=== PATIENT | female | born 1945 | race African-American/Black ===

== ENCOUNTER 2017-09-10 13:38 | Emergency (ER) | payer MEDICARE, BC ==
[~2017-09-10] VITALS: Ht 165.1 cm; Wt 84.0 kg
[~2017-09-10 13:38] MED LIST: AMLO10TA4 PO; BRIM5DRO RIGHTEYE; LEVO100T9 PO; LOSA1TAB37 PO; TIMO15DR12 RIGHTEYE
[2017-09-10 14:29] LABS: BASOPHILS % 0.8 % (0.0-2.0); EOSINOPHILS % 2.3 % (0.0-5.0); HEMATOCRIT. 38.6 % (36.0-48.0); HEMOGLOBIN. 12.9 g/dL (12.0-16.0); LYMPHOCYTES % 33.3 % (20.0-50.0); MEAN CORPUSCULAR HEMOGLOBIN 27.4 pg (28.0-32.0); MEAN CORPUSCULAR VOLUME 81.9 fL (81.0-99.0); MEAN PLATELET VOLUME 6.9 fl (7.4-10.4); MONOCYTES % 11.7 % (2.0-8.0); NEUTROPHILS % 51.9 % (40.0-76.0); PLATELET 278 x1000/uL (130-400); RED BLOOD CELL COUNT 4.72 mill/uL (4.2-5.4); RED CELL DISTRIBUTION WIDTH 14.4 % (11.6-14.6)
[2017-09-10 14:40] LABS: CHLORIDE 107 mEq/L (98-107)
[2017-09-10 14:44] LABS: INR 1.1; PARTIAL THROMBOPLASTIN TIME 27.2 sec (23.4-31.0); PROTHROMBIN TIME 10.9 sec (9.4-11.6)
[2017-09-10 18:20] LABS: CLARITY URINE TURBID (CLEAR); COLOR URINE YELLOW (YELLOW); KETONES URINE NEGATIVE (NEGATIVE); LEUKOCYTE ESTERASE URINE NEGATIVE (NEGATIVE); NITRITE URINE NEGATIVE (NEGATIVE); OCCULT BLOOD URINE NEGATIVE (NEGATIVE); PROTEIN URINE NEGATIVE (NEGATIVE); SPECIFIC GRAVITY URINE 1.014 (1.005-1.030); UROBILINOGEN URINE 0.2 E.U./dL (0.2-1.0)
[2017-09-10] MEDS ORDERED: IBUPROFEN 600MG TABLET PO ONE (19:45)
[2017-09-10 20:04] VITALS: BP 135/77
== END 2017-09-10 20:07 | disposition home or self-care (01) ==
LOC: ER 16:02
DX: S09.8XXA Other specified injuries of head, initial encounter (principal); M54.2 Cervicalgia; M79.1 Myalgia; M79.652 Pain in left thigh; I10 Essential (primary) hypertension; E78.00 Pure hypercholesterolemia, unspecified; E03.9 Hypothyroidism, unspecified; W01.0XXA Fall on same level from slipping, tripping and stumbling without subsequent striking against object, initial encounter; Y93.89 Activity, other specified; Y99.8 Other external cause status; Y92.89 Other specified places as the place of occurrence of the external cause; Z88.5 Allergy status to narcotic agent; Z88.8 Allergy status to other drugs, medicaments and biological substances
CPT/HCPCS: 36415; 70450; 72125; 73552; 80053; 81003; 83690; 85025; 85610; 85730; 99285

== ENCOUNTER 2018-04-01 17:32 | Inpatient (IN) | payer MEDICARE, BC ==
[~2018-04-01] VITALS: Ht 165.1 cm; Wt 83.9 kg
[~2018-04-01 17:32] MED LIST changes: +BRIM5DRO BOTHEYE; -BRIM5DRO RIGHTEYE; +TIMO15DR12 BOTHEYE; -TIMO15DR12 RIGHTEYE
[2018-04-01] MEDS ORDERED: SODIUM CHLORIDE 0.9% 1,000 ML IV ONE (17:46)
[2018-04-01] MEDS ORDERED: ASPIRIN 81MG TABLET PO ONE (18:00)
[2018-04-01 18:30] LABS: BASOPHILS % 0.5 % (0.0-2.0); EOSINOPHILS % 2.8 % (0.0-5.0); HEMATOCRIT. 36.4 % (36.0-48.0); LYMPHOCYTES % 31.5 % (20.0-50.0); MEAN CORPUSCULAR HEMOGLOBIN 26.8 pg (28.0-32.0); MEAN CORPUSCULAR VOLUME 81.7 fL (81.0-99.0); MEAN PLATELET VOLUME 7.1 fl (7.4-10.4); MONOCYTES % 11.5 % (2.0-8.0); NEUTROPHILS % 53.7 % (40.0-76.0); PLATELET 270 x1000/uL (130-400); RED BLOOD CELL COUNT 4.45 mill/uL (4.2-5.4); RED CELL DISTRIBUTION WIDTH 14.9 % (11.6-14.6)
[2018-04-01 18:33] LABS: CHLORIDE 102 mEq/L (98-107)
[2018-04-01 18:40] LABS: D-DIMER 0.4 mg/L FEU (<0.50); PARTIAL THROMBOPLASTIN TIME 26.8 sec (23.4-31.0)
[2018-04-01 22:12] VITALS: BP 134/95
[2018-04-01] MEDS ORDERED: IPRATROPIUM/ALBUTEROL 0.5-3(2.5)MG/3ML NEB HHN PRN (23:30)
[2018-04-01] MEDS ORDERED: HYDROCODONE/ACETAMINOPHEN 5/325MG TABLET PO PRN (23:30)
[2018-04-02 04:00] VITALS: BP 124/70
[2018-04-02 08:00] VITALS: BP 135/72
[2018-04-02] MEDS ORDERED: AMLODIPINE 10MG TABLET PO SCH (09:00)
[2018-04-02] MEDS: BRIMONIDINE 0.2% OPHTH DROPS 5ML BOTHEYE SCH ×2 (09:00→17:34)
[2018-04-02] MEDS ORDERED: ASPIRIN 81MG TABLET PO SCH (09:00)
[2018-04-02] MEDS ORDERED: POTASSIUM CHLORIDE 20MEQ TABLET SR PO SCH (09:00)
[2018-04-02] MEDS: TIMOLOL MALEATE 0.5% OPHTH DROPS 5ML EACHEYE SCH ×3 (09:00→17:34)
[2018-04-02] MEDS ORDERED: ENOXAPARIN 40MG/0.4ML SYR SUBCUT SCH (09:00)
[2018-04-02 09:53] LABS: CHLORIDE 107 mEq/L (98-107)
[2018-04-02 10:10] LABS: HDL CHOLESTEROL 72 mg/dL (40-59)
[2018-04-02 10:11] LABS: LDL CHOLESTEROL 156 mg/dL (5-100)
[2018-04-02 12:00] VITALS: BP 121/72
[2018-04-02] MEDS ORDERED: LEVOTHYROXINE SODIUM 100MCG TABLET PO SCH (12:20)
[2018-04-02] MEDS ORDERED: EZETIMIBE 10MG TABLET PO SCH (12:30)
[2018-04-02 16:00] VITALS: BP 128/71
[2018-04-02 17:01] LABS: BG BASE EXCESS -2.6 mmol/L (-2.0-2.0); BG CARBOXYHEMOGLOBIN 0.4 % (0.5-1.5); BG DEOXYHEMOGLOBIN 3.5 % (0.0-5.0); BG FRACTION INSPIRED OXYGEN 21; BG HCO3 ACT 20.7 mmol/L (22.0-26.0); BG METHEMOGLOBIN 0.3 % (0.0-1.5); BG OXYGEN SATURATION 96.5 % (92.0-98.5); BG OXYHEMOGLOBIN 95.8 % (94.0-97.0); BG PCO2 31.4 mmHg (35.0-45.0); BG PH 7.436 (7.350-7.450); BG PO2 85.4 mmHg (75.0-100.0); BG SAMPLE SITE RIGHT RADIAL; BG TOTAL HEMOGLOBIN 13.3 g/dL (12.0-18.0); BG VENT MODE ROOM AIR
[2018-04-02] MEDS ORDERED: LEVOTHYROXINE SODIUM 88MCG TABLET PO NR (17:30)
[2018-04-02 20:00] VITALS: BP_SYST 109; BP_SYST 139; BP_DIAS 62; BP_DIAS 72
[2018-04-02 20:51] VITALS: BP 109/62
[2018-04-03] MEDS ORDERED: LEVOTHYROXINE SODIUM 88MCG TABLET PO SCH (07:40)
== END 2018-04-02 21:50 | disposition short-term general hospital (02) | DRG 194 ==
LOC: ER 17:32 → 7WST 19:53 → ENRESERV 20:58
PROVIDERS: ADMIT Internal Medicine; ATTEND Internal Medicine
DX: I11.0 Hypertensive heart disease with heart failure (principal); G90.8 Other disorders of autonomic nervous system; R00.1 Bradycardia, unspecified; J44.9 Chronic obstructive pulmonary disease, unspecified; I50.33 Acute on chronic diastolic (congestive) heart failure; E78.5 Hyperlipidemia, unspecified; Z86.73 Personal history of transient ischemic attack (TIA), and cerebral infarction without residual deficits; M19.90 Unspecified osteoarthritis, unspecified site; E89.0 Postprocedural hypothyroidism; E87.6 Hypokalemia; F17.210 Nicotine dependence, cigarettes, uncomplicated; H40.9 Unspecified glaucoma; H54.7 Unspecified visual loss; Z88.8 Allergy status to other drugs, medicaments and biological substances; Z79.899 Other long term (current) drug therapy
CPT/HCPCS: 36415; 36600; 70450; 71045; 73562; 80048; 80053; 80061; 82375; 82805; 83735; 83880; 84443; 84484; 84550; 85025; 85379; 85610; 85730; 93005; 93306; 93880; 96360; 96361; 99285; J1650; J7030